=== PATIENT | female | born 2000 | race Caucasian/White ===

== ENCOUNTER 2025-07-09 17:42 | Emergency (ER) | payer SELFPAY ==
[~2025-07-09] VITALS: Ht 162.6 cm; Wt 60.0 kg
[2025-07-09 17:53] VITALS: TEMP 37.9; O2SAT 98
[2025-07-09 18:29] LABS: BASOPHILS % 0.6 % (0.0-2.0); EOSINOPHILS % 0.9 % (0.0-5.0); HEMATOCRIT. 39.2 % (36.0-48.0); HEMOGLOBIN. 13.3 g/dL (12.0-16.0); LYMPHOCYTES % 11.0 % (20.0-50.0); MEAN PLATELET VOLUME 8.3 fl (7.4-10.4); MONOCYTES % 7.8 % (2.0-8.0); NEUTROPHILS % 79.7 % (40.0-76.0); PLATELET 185 x1000/uL (130-400); RED BLOOD CELL COUNT 4.53 mill/uL (4.2-5.4); RED CELL DISTRIBUTION WIDTH 13.5 % (11.6-14.6)
[2025-07-09 18:43] LABS: CREATININE 0.6 mg/dL (0.6-1.0)
[2025-07-09 18:44] LABS: UREA NITROGEN BLOOD 6 mg/dL (9-23)
[2025-07-09 18:45] LABS: ASPARTATE AMINOTRANSFERASE 40 IU/L (<34)
[2025-07-09 18:46] LABS: BILIRUBIN DIRECT 0.2 mg/dL (<=3.0); BILIRUBIN TOTAL 0.5 mg/dL (0.1-1.0); PROTEIN TOTAL 7.0 g/dL (6.0-8.3)
[2025-07-09 20:16] LABS: HCG SCREEN NEGATIVE
[2025-07-09] MEDS: DEXAMETHASONE 10 MG/ML VIAL PO ONE (20:36)
[2025-07-09] MEDS: IBUPROFEN 600MG TABLET PO ONE (20:36)
[2025-07-09 20:37] LABS: CLARITY URINE CLEAR (CLEAR); COLOR URINE YELLOW (YELLOW); GLUCOSE URINE NEGATIVE (NEGATIVE); KETONES URINE 2+ (NEGATIVE); LEUKOCYTE ESTERASE URINE NEGATIVE (NEGATIVE); NITRITE URINE POSITIVE (NEGATIVE); OCCULT BLOOD URINE 1+ (NEGATIVE); PH URINE 6.0 (4.5-8.0); PROTEIN URINE NEGATIVE (NEGATIVE); SPECIFIC GRAVITY URINE 1.011 (1.005-1.030); UROBILINOGEN URINE 1.0 E.U./dL (0.2-1.0)
[2025-07-09 20:48] LABS: BACTERIA URINE 4+
[2025-07-09 20:49] LABS: SQUAMOUS EPITHELIAL CELL URINE FEW /lpf (RARE/1+); WBC URINE 0-2 /hpf (0-2)
[2025-07-09 21:02] LABS: INFLUENZA TYPE A Presumptive Negative (Pres. Neg.)
[2025-07-09 21:03] LABS: INFLUENZA TYPE B Presumptive Negative (Pres. Neg.); RESPIRATORY SYNCYTIAL VIRUS Not Detected (Not Detectd)
[2025-07-09] MEDS ORDERED: AMOX-494 MT (21:11)
[2025-07-09 21:30] VITALS: BP 114/66; PULSE 109; RESP 18; O2SAT 98
== END 2025-07-09 21:36 | disposition home or self-care (01) ==
LOC: ER 17:42
DX: J11.08 Influenza due to unidentified influenza virus with specified pneumonia (principal); J12.82 Pneumonia due to coronavirus disease 2019; Z20.822 Contact with and (suspected) exposure to COVID-19
CPT/HCPCS: 99284; 71045; 87426; 80076; 80048; 81003; 81025; 84703; 87430; 83690; 85025; 87420; 87070; 87804 ×2; 87077; 36415; J1100